=== PATIENT | female | born 1975 ===

== ENCOUNTER 2018-09-06 10:07 | Emergency (ER) | payer MEDICAID ==
--- NOTE | 2018-09-06 10:21 | C.PDOC ---
History Of Present Illness 43 y/o female presents to the ED complaining of difficulty swallowing since this morning. Patient states it feels like something sitting on my tongue. Otherwise she denies any wheezing, SOB, itching, rash, nausea, vomiting, or chest tightness. Patient went to her PMD's office where she received 10 mg Decadron IM and was sent to the ED for further evaluation of allergic reaction. Time Seen by Provider: 09/06/18 10:14 Chief Complaint (Nursing): Allergic Reaction History Per: Patient History/Exam Limitations: no limitations Onset/Duration Of Symptoms: Hrs Current Symptoms Are (Timing): Still Present Possible Cause: Unknown Associated Symptoms: Trouble Swallowing Past Medical History Reviewed: Historical Data, Nursing Documentation, Vital Signs Vital Signs: Last Vital Signs Temp 97.5 F L 09/06/18 10:19 Pulse 101 H 09/06/18 10:19 Resp 20 09/06/18 10:19 BP 128/92 H 09/06/18 10:19 Pulse Ox 97 09/06/18 10:19 - Medical History PMH: No Chronic Diseases Surgical History: Cholecystectomy Family History: States: No Known Family Hx Review Of Systems Except As Marked, All Systems Reviewed And Found Negative. Constitutional: Negative for: Fever Eyes: Negative for: Vision Change ENT: Positive for: Other (Difficulty swallowing) Cardiovascular: Negative for: Chest Pain Respiratory: Negative for: Shortness of Breath, Wheezing Gastrointestinal: Negative for: Nausea, Vomiting Skin: Negative for: Rash Neurological: Negative for: Weakness, Dizziness Physical Exam - Physical Exam Appears: Non-toxic, In Acute Distress (mild distress) Skin: Normal Color, Warm, Dry, No Rash Head: Atraumatic, Normacephalic Eye(s): bilateral: Normal Inspection, PERRL, EOMI Oral Mucosa: Moist Tongue: Normal Appearing, Other (+Swollen uvula, sitting on the posterior tongue) Throat: No Erythema, No Drooling Neck: Supple Chest: Symmetrical Cardiovascular: Rhythm Regular, No Murmur Respiratory: Normal Breath Sounds, No Accessory Muscle Use, No Stridor, No Wheezing, Other (NARD) Gastrointestinal/Abdominal: Soft, No Tenderness, No Distention Extremity: Bilateral: Normal Color And Temperature, Normal ROM Neurological/Psych: Oriented x3, Normal Speech ED Course And Treatment O2 Sat by Pulse Oximetry: 97 (on RA) Pulse Ox Interpretation: Normal Progress - Re-Evaluation Re-evaluation Note: 09/06/18 11:14 IMPROVED VOICE COMPARED TO PRIOR VSS 09/06/18 12:55 FEELS BETTER NARD UVULA IMPROVED FROM PRIOR. - Critical Care Citical Care: Excluding Proc Time Critical Care Time: 90 minutes Medical Decision Making Medical Decision Making: Impression: Allergic reaction Initial Plan: --EKG --Benadryl 50 mg IVP --Pepcid 20 mg IVP --Brethine 0.25 mg SC --Will observe in the ED Disposition Counseled Patient/Family Regarding: Diagnosis, Need For Followup, Rx Given - Disposition Referrals: YOUR,PMD [Other] Disposition: HOME/ ROUTINE Disposition Time: 12:55 Condition: IMPROVED Additional Instructions: READ INSTRUCTIONS FOR UVULITIS Prescriptions: Epinephrine HCl [Epi Pen Jr] 0.15 mg IJ ONCE #1 ml Forms: [facility] (K[place]akh), General Discharge Instructions, Work Excuse - Clinical Impression Clinical Impression: Uvular edema - Scribe Statement The provider has reviewed the documentation as recorded by the Scribe (Paulette Mcfadden) Provider Attestation: All medical record entries made by the Scribe were at my direction and personally dictated by me. I have reviewed the chart and agree that the record accurately reflects my personal performance of the history, physical exam, medical decision making, and the department course for this patient. I have also personally directed, reviewed, and agree with the discharge instructions and disposition.
[2018-09-06] MEDS ORDERED: MethylPREDNISolone 40 mg Vial IVP STA (10:22)
[2018-09-06] MEDS ORDERED: DiphenhydrAMINE 50 mg/ml Inj IVP STA (10:22)
[2018-09-06 10:30] VITALS: TEMP 97.5
[2018-09-06] MEDS ORDERED: MethylPREDNISolone 40 mg Vial ONE (10:33)
[2018-09-06] MEDS ORDERED: DiphenhydrAMINE 50 mg/ml Inj IVP ONE (11:00)
[2018-09-06 12:34] VITALS: BP 103/70; PULSE 112; RESP 22
[2018-09-06 12:57] VITALS: O2SAT 97
== END 2018-09-06 13:19 | disposition home or self-care (01) ==
LOC: C.ER 10:07
DX: R60.9 Edema, unspecified (principal)
CPT/HCPCS: 96372; 96374; 96375; 99284; J1200; J3105